=== PATIENT | female | born 1940 | race Caucasian/White ===

== ENCOUNTER → 2017-11-20 08:13 | Outpatient (CLI) | payer MEDICARE, OTHER, SELFPAY ==
--- NOTE | 2017-11-20 08:18 | CT_ITS ---
STUDY: CT SOFT TISSUE NECK WITHOUT CONTRAST REASON FOR EXAM: Female, 77 years old. 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 RADIATION DOSAGE (If Supplied By Facility): CTDIvol = ( 12.88 ) mGy, DLP = ( 423.44 ) mGycm TECHNIQUE: The patient was scanned in a multi-detector CT scanner. High resolution transaxial imaging was performed without the administration of intravenous contrast material. Sagittal and coronal images were reconstructed. Individualized dose optimization techniques were used for this CT. COMPARISON: None. FINDINGS: Normal bilateral parotid glands. Normal bilateral shake sawyer spaces. Normal bilateral parapharyngeal spaces. Normal bilateral carotid spaces. Normal bilateral sublingual and submandibular glands and spaces. Normal visualized nasopharynx. Normal retropharyngeal space. Normal perivertebral space. Normal visualized bilateral faucial tonsils. The visualized tongue, tongue base and oropharynx are normal. The visualized cervical lymph nodes (levels I-) are within normal size limits, and maintain normal morphology. There is no demonstrated solid or cystic mass lesion. Normal epiglottis, bilateral vallecula and hypopharynx. The pre-epiglottic and paraglottic adipose spaces are normal. Soft tissue asymmetry in the left aryepiglottic fold. No significant compromise of the airway. Normal subglottic trachea. Several hypodensities seen in the right lobe of the thyroid. The largest measures 1.2 cm. Normal visualized pulmonary apices. Normal visualized paranasal sinuses. There is multilevel degenerative changes of the cervical spine. CT/Soft Tissue Neck without Contr IMPRESSION: Soft tissue prominence along the left aryepiglottic fold. Small hypodensities seen in the right lobe of the thyroid. Emphysematous changes seen in the visualized portions of the lung. Electronically Signed: Eze Lovett MD at 10:20 EST Tel [phone], Service support ,
== END ==
PROVIDERS: Family Provider Family Medicine; PCP Family Medicine; Visit Provider Radiology Radiation Oncology
DX: C32.0 Malignant neoplasm of glottis (principal)
CPT/HCPCS: 70490

== ENCOUNTER → 2017-12-13 15:48 | Outpatient (CLI) | payer MEDICARE, OTHER, SELFPAY ==
[2017-12-13 17:30] LABS: Absolute Lymphocyte Count 1.27 X10^3/ul (0.83-4.51); Absolute Neutrophil Count 1.9 X10^3/uL (2.0-7.7); Basophil# 0.02 X10^3/uL; Basophil% 0.5 % (0-1); Eosinophil# 0.08 X10^3/uL; Eosinophils% 2.2 % (0-5); Hematocrit 35.8 % (37-47); Lymphocyte # 1.27 X10^3/ul (4.0); Lymphocyte % 34.4 % (19-41); Mean Corp Hgb Conc 33.5 g/gl (32-36); Mean Corpuscular Hgb 30.5 pg (27.0-32.0); Mean Corpuscular Volume 90.9 fL (81-99); Mean Platelet Vol. 9.4 fl (6.2-12.0); Monocyte# 0.42 X10^3/uL; Monocyte% 11.4 % (0-10); Neutrophil % 51.5 % (47-70); Platelet Count 162 K/mm3 (150-450); RBC Distribution Width CV 12.4 % (11.6-14.6); RBC Distribution Width SD 41.4 fl (35.1-43.9); Red Blood Count 3.94 M/mm3 (4.2-5.4); White Blood Count 3.7 K/mm3 (4.4-11.0)
[2017-12-13 17:33] LABS: POSITIVE COUNT NO; POSITIVE DIFFERENTIAL NO; POSITIVE MORPHOLOGY NO
== END ==
PROVIDERS: Visit Provider Radiology Radiation Oncology
DX: C32.0 Malignant neoplasm of glottis (principal)
CPT/HCPCS: 36415; 85025

== ENCOUNTER → 2018-04-09 14:03 | Outpatient (CLI) | payer MEDICARE, OTHER, SELFPAY ==
[2018-04-09 15:00] LABS: BUN 26 mg/dL (7-18); Creatinine, Serum 0.77 mg/dL (0.55-1.02); EST Glomerular Filtration Rate 78 mL/min (>60); Glucose 96 mg/dL (74-106)
[2018-04-09 15:01] LABS: Anion Gap 4 (5-15); BUN/Creat Ratio 33.9 RATIO (10-20); Calcium,Total 8.7 mg/dL (8.5-10.1); Chloride 106 mmol/L (98-107); Cholesterol 214 mg/dL (200); Est Glom Filt Rate - Afr Amer 94 mL/min (>60); High Density Lipoprotein 68 mg/dL; Potassium 4.1 mmol/L (3.5-5.1); Sodium Level 140 mmol/L (136-145); Thyroid Stim Hormone (TSH) 2.41 uIU/mL (0.358-3.74); Triglycerides 83 mg/dL; Very Low Density Lipoprotein 17 mg/dL (5-40)
== END ==
PROVIDERS: Visit Provider Internal Medicine Cardiovascular Disease
DX: I10 Essential (primary) hypertension (principal)
CPT/HCPCS: 36415; 80048; 80061; 84443

== ENCOUNTER → 2018-04-30 11:01 | Outpatient (CLI) | payer MEDICARE, OTHER, SELFPAY ==
--- NOTE | 2018-04-30 11:03 | ECHOD_ITS ---
Version 2 Reason For Study: ARRHYTHMIA Procedure This was a 2D Doppler, Color Flow transthoracic echocardiogram. Exam performed in department. Left Ventricle Normal LV size. The estimated ejection fraction is 25 %. Septal motion consistent with IVCD. Transmitral diastolic flow velocities suggest mild (stage 1) diastolic dysfunction (reversed pattern). There is moderate to severe global hypokinesis of the left ventricle. Right Ventricle Normal RV size. Normal systolic function. Mitral Valve Bileaflet diffuse mitral valve thickening. Mild (1+) eccentric mitral valve insufficiency. Tricuspid Valve Normal tricuspid valve. Mild tricuspid valve insufficiency. Unable to estimate RV systolic pressure/pulmonary artery pressure due to technically difficult study. Aortic Valve Trisinus/trileaflet aortic valve. Pulmonic Valve Normal pulmonic valve. Great Vessels Normal aortic root. The pulmonary artery is normal size. Normal inferior vena cava. Pericardium/Pleural No pericardial effusion. MMode/2D Measurements & Calculations LVIDd: 4.5 cm IVSd: 1.1 cm Ao root diam: 2.9 cm LVIDs: 3.6 cm LVPWd: 1.0 cm RVDd: 3.7 cm FS: 19.2 % LAV(MOD-bp): 34.3 ml LA A4 area: 10.7 cm2 RA A4 area: 10.1 cm2 LAV(MOD-bp) Indexed: 22.1 ml/m2 LAV(MOD-sp2): 43.5 ml LAV(MOD-sp4): 26.2 ml Time Measurements MV dec time: 0.32 sec Doppler Measurements & Calculations MV E max joshua: 48.6 cm/sec Lat Peak E' Joshua: 4.2 cm/sec Med Peak E' Joshua: 2.7 cm/sec MV A max joshua: 80.4 cm/sec E/E' lat: 11.6 E/E' med: 17.9 MV E/A: 0.60 Ao V2 max: 149.7 cm/sec LV V1 max: 107.5 cm/sec Ao max P.0 mmHg LV V1 max P.6 mmHg Interpretation Summary Normal LV size. The estimated ejection fraction is 25 %. Septal motion consistent with IVCD. Transmitral diastolic flow velocities suggest mild (stage 1) diastolic dysfunction (reversed pattern). Mild tricuspid valve insufficiency. Global longitudinal strain of 12 Ordering Physician: Michael Eagle Referring Physician: Michael Ealge Performed By: Celeste Knight, ONELIA, RVT
== END ==
PROVIDERS: Visit Provider Internal Medicine Cardiovascular Disease
DX: I44.7 Left bundle-branch block, unspecified (principal)
CPT/HCPCS: 93306

== ENCOUNTER 2018-06-12 11:11 | Emergency (ER) | payer MEDICARE, OTHER, SELFPAY ==
[2018-06-12 11:12] VITALS: BP 148/91; PULSE 80; RESP 16; TEMP 36.6; O2SAT 98; BMI 21.6
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
[2018-06-12] MEDS: Diphth,Pertuss(Acell),Tet Vac 0.5 ML Vial IM (11:39)
--- NOTE | 2018-06-12 12:18 | ED.DEP ---
ED Disposition - Plan for ED Patient: Disposition: Home or Assisted Living Chief Complaint: Head Injury Instructions: ED Head Injury Closed, ED Laceration Scalp Stitch Or Stap Referrals: Yared Chun MD [STAFF PHYSICIAN] - 10 Day for suture removal Additional Instructions: Keep wound clean. Suture removal in 10 days. Return if severe headache, intractable vomiting. Or not acting herself. At this time she does not meet any criteria for a CAT scan.
== END 2018-06-12 12:31 | disposition home or self-care (01) ==
PROVIDERS: Emergency Provider Emergency Medicine
DX: S01.01XA Laceration without foreign body of scalp, initial encounter (principal); W17.89XA Other fall from one level to another, initial encounter; Y93.9 Activity, unspecified; Y92.9 Unspecified place or not applicable; Y99.9 Unspecified external cause status; Z23 Encounter for immunization; I10 Essential (primary) hypertension; Z79.82 Long term (current) use of aspirin; Z79.899 Other long term (current) drug therapy
CPT/HCPCS: 12001; 90471; 90715; 99284

== ENCOUNTER 2018-12-15 08:56 | Day surgery (SDC) | payer MEDICARE, OTHER, SELFPAY ==
[2018-12-02 14:12] VITALS: BMI 22.3
--- NOTE | 2018-12-02 16:15 | RAD_ITS ---
STUDY: X-RAY CHEST REASON FOR EXAM: Female, 78 years old. Chest pain with cardiomyopathy TECHNIQUE: PA and lateral views of the chest. COMPARISON: None. FINDINGS: There is hyperinflation of the lungs consistent with chronic obstructive lung disease (COPD). Lungs are clear. There is no demonstrated pleural abnormality. There is borderline cardiomegaly. Normal mediastinum and robert. Normal visualized pulmonary arteries. Normal visualized aortic arch and descending thoracic aorta. There are diffuse degenerative changes of the visualized thoracic spine. Normal visualized ribs, clavicles, and shoulders. There is no demonstrated abnormality of the visualized soft tissue structures of the upper abdomen. RAD/Chest PA and Lateral IMPRESSION: COPD. Lungs are clear. Borderline cardiomegaly. Electronically Signed: Dontrell Ch DO at 13:35 EST Tel , Service support ,
[2018-12-02 16:35] LABS: Absolute Lymphocyte Count 1.26 X10^3/ul (0.83-4.51); Absolute Neutrophil Count 1.7 X10^3/uL (2.0-7.7); Basophil# 0.01 X10^3/uL; Basophil% 0.3 % (0-1); Eosinophil# 0.08 X10^3/uL; Eosinophils% 2.3 % (0-5); Hematocrit 38.8 % (37-47); Hemoglobin 12.8 g/dl (12.0-15.0); Lymphocyte # 1.26 X10^3/ul (4.0); Lymphocyte % 36.4 % (19-41); Mean Corpuscular Hgb 30.9 pg (27.0-32.0); Mean Corpuscular Volume 93.7 fL (81-99); Mean Platelet Vol. 9.1 fl (6.2-12.0); Monocyte# 0.39 X10^3/uL; Monocyte% 11.3 % (0-10); Neutrophil # 1.71 X10^3/uL (2.7-7.7); Neutrophil % 49.4 % (47-70); Platelet Count 169 K/mm3 (150-450); RBC Distribution Width SD 40.1 fl (35.1-43.9); Red Blood Count 4.14 M/mm3 (4.2-5.4); White Blood Count 3.5 K/mm3 (4.4-11.0)
[2018-12-02 16:36] LABS: POSITIVE COUNT NO; POSITIVE DIFFERENTIAL NO; POSITIVE MORPHOLOGY NO
[2018-12-02 17:04] LABS: Anion Gap 6 (5-15); BUN 25 mg/dL (7-18); BUN/Creat Ratio 31.1 RATIO (10-20); Calcium,Total 8.9 mg/dL (8.5-10.1); Chloride 106 mmol/L (98-107); EST Glomerular Filtration Rate 74 mL/min (>60); Est Glom Filt Rate - Afr Amer 89 mL/min (>60); Glucose 79 mg/dL (74-106); Potassium 4.3 mmol/L (3.5-5.1); Sodium Level 144 mmol/L (136-145)
[2018-12-05 10:41] VITALS: BMI 22.3
--- NOTE | 2018-12-15 11:14 | CL.D_ITS ---
Patient Name: DOUGLAS WOO Study Date: 12/15/2018 Performing: Michael Eagle MD Ht: 62.99 inches 160 cm : 1940 Wt: 125.66 lbs 57 kg Age: 78 Gender: female BSA: 1.59 PROCEDURE(S) PERFORMED QB79-TOG/COR/LV CLINICAL PROFILE AND INDICATIONS Indications: Cardiomyopathy Heart Failure: None Stress/Imaging Stress/Image Study Performed: No CAD Presentations: No Sxs, no angina. CONCLUSIONS Moderately severe CAD involving the distal left anterior descending artery. Severe hypertension. Mi ld cardiomyopathy RECOMMENDATIONS Medical therapy Stress testing when BP better controlled. DESCRIPTION OF PROCEDURE The patient arrived to the procedure lab. The risks and benefits of the procedure as well as a full d escription of our services here and current unavailability of surgical backup were fully explained to the patient and/or their significant other prior to the catheterization. The Timeout was completed, verifying the correct patient and procedure. The patient's procedural site was prepped and draped in the usual fashion. Local anesthetic was given subcutaneously to right groin region with Lidocaine 2%. Using a modified Seldinger technique, arterial access was obtained via the right femoral artery, a 5 Fr sheath was inserted. Left Coronary Artery selective angiography was performed in multiple views u sing a 5 Fr. JL4 catheter. Right Coronary Artery selective angiography was then performed in multiple views using a 5 Fr. 3DRC (Moe) catheter. Left Ventriculography was performed in HERNADEZ projection using a 5 Fr. Pigtail catheter. LV to AO pullback pressures were then recorded.Contrast was injected through the sheath and the Right Iliac and Femoral artery were assessed for possible regina sure device.The arterial sheath was pulled and a Mynx closure device was deployed for hemostasis CORONARY ANGIOGRAPHY DOMINANCE: Right Dominant LEFT HEART ASSESSMENT Left Ventricular Ejection Fraction: by LV Gram 40 % Anterior Hypokinesis - Mild Depressed Left Ventricular systolic function LEFT MAIN: Angiographically normal LEFT ANTERIOR DECENDING ARTERY: PROX LAD: Mild luminal irregularities MID LAD: Mild luminal irregularities DISTAL LAD: 60-70 in small vessel % Stenosis CIRCUMFLEX ARTERY: Angiographically normal RIGHT CORONARY ARTERY: Angiographically normal COMPLICATIONS No Complications PROCEDURE MEDICATIONS Versed 1 mg IV Oxygen: 2 L/min via nasal cannula Plavix 300 mg PO 12/15/2018 09:22:27 SUMMARY OF HEMODYNAMIC DATA Time AIR REST ECG 09:28:51 AO 170/67 (102) SA 10:39:13 LV 177/4, 13 10:45:50 LV 182/5, 11 10:45:57 LV 181/2, 17 10:47:00 LVp 183/0, 17 10:47:03 AOp 183/70 (110) 10:47:09 Signed By Michael Eagle MD On 12/15/2018 11:13:36 Michael Eagle MD
== END 2018-12-15 13:40 | disposition home or self-care (01) ==
LOC: CLSP 08:58
PROVIDERS: Referring Provider Internal Medicine Cardiovascular Disease; Visit Provider Internal Medicine Cardiovascular Disease
DX: I25.10 Atherosclerotic heart disease of native coronary artery without angina pectoris (principal); I42.9 Cardiomyopathy, unspecified; I10 Essential (primary) hypertension; Z79.82 Long term (current) use of aspirin; Z79.899 Other long term (current) drug therapy
CPT/HCPCS: 36415; 71046; 80048; 85025; 93458; 99152; 99153; C1760; J7040; C1769; Q9967

== ENCOUNTER → 2019-01-27 15:19 | Outpatient (CLI) | payer MEDICARE, OTHER, SELFPAY ==
[2018-12-05 10:41] VITALS: BMI 22.3
--- NOTE | 2019-01-27 12:41 | MASS_PTH ---
PATIENT: DOUGLAS WOO LOC: [facility] U#:[id number] AGE/SX: 85/F ROOM: RE01/27/[address]: Dr. Porter Gonzalez MD : 1940 BED: DIS: SPEC #: [id number] RECD: 01/27/19 15:12 STATUS: ANI [facility] #: [id number] ANN: 01/27/19 12:[address]: Porter Gonzalez DEPT: SURGICAL PATHOLOGY RECD BY: Sudha Medina ENTERED: 01/28/19 11:05 SP TYPE: Mass OTHR DR: Rin Primary Care Phys [facility] Tissues: Ear, NOS Procedures: Surgery Specimen Level IV HEADER OPERATION: Excision right ear lesion PRE-OP DIAGNOSIS: Lesion right ear TISSUE SUBMITTED: Mass right pinna MICROSCOPIC DIAGNOSIS Mass right pinna, excisional biopsy: Seborrheic keratosis. Negative for malignancy. SJ:ruby 01/29/19 COMMENT Case has been reviewed in consultation with Dr. Akins who concurs with the above diagnosis. IDC:AM MICROSCOPIC DESCRIPTION Slides are reviewed. GROSS DESCRIPTION Received is one container labeled with the patient's name and not further designated. The specimen consists of a polypoid piece of lundberg-white skin measuring 1.5 x 1 x 0.9 cm. Also present in the container are two smaller pieces of lundberg soft tissue measuring in aggregate 0.4 x 0.2 x 0.1 cm. Largest piece is inked and bisected. The entire specimen is submitted in one cassette. / SJ:rg 01/28/19 TC:1 CPT: 57980
== END ==
PROVIDERS: Referring Provider Otolaryngology Otolaryngology/Facial Plastic Surgery; Visit Provider Otolaryngology Otolaryngology/Facial Plastic Surgery
DX: L82.1 Other seborrheic keratosis (principal)
CPT/HCPCS: 88305

== ENCOUNTER → 2019-04-14 11:56 | Outpatient (CLI) | payer MEDICARE, OTHER, SELFPAY ==
[2018-12-05 10:41] VITALS: BMI 22.3
[2019-04-03 11:27] VITALS: BMI 21.4
--- NOTE | 2019-04-14 11:59 | BI_ITS ---
MAMMOGRAPHY - BILATERAL SCREENING 3-D TOMOSYNTHESIS REASON FOR EXAM: Female, 78 years old. Bilateral Screening 3-D tomosynthesis PERTINENT HISTORY: History of inverted nipples all of her life. TECHNIQUE: 2-D mammograms and 3-D Tomosynthesis of the breast (s) were performed. CAD was performed. COMPARISON: September 05, 2016, August 01, 2015 FINDINGS: The breast composition is heterogeneously dense that can obscure small breast masses. Scattered benign calcifications are seen. No dense spiculated masses or suspicious microcalcifications are identified. No architectural distortion is identified. There is no skin thickening or retraction. There has been no significant change since the prior study. BI/SCREEN MAMM (CAD) W/TOPHER BILAT IMPRESSION: No mammographic signs of malignancy. Routine yearly mammograms recommended. ASSESSMENT CATEGORY: BIRADS Category 2: Benign. A letter regarding these results will be sent to the patient by the facility within 30 days. FOLLOW UP RECOMMENDATION: Yearly follow up mammogram recommended. (A) Approximately 10% of breast cancers are not detected by mammography. A normal mammogram should not delay biopsy of a clinically suspicious abnormality. Electronically Signed: Evan Peace MD at 17:37 EDT , Service support ,
--- NOTE | 2019-04-14 12:15 | BD_ITS ---
STUDY: DUAL ENERGY X-RAY ABSORPTIOMETRY / DXA REASON FOR EXAM: Female, 78 years old. The patient is postmenopausal. Loss of height. TECHNIQUE: Bone Mineral Density (BMD) measurements of lumbar spine and bilateral hips were obtained. COMPARISON: Comparison is made with prior examination dated January 31, 2011. FINDINGS: Lumbar Spine (L1-L4): g/cm2 (1.286) / T-score (0.7) / Z-score (2.5) Findings are suggestive of normal bone density with a low fracture risk. Increased thoracic kyphosis. Left Femur Total: g/cm2 (1.072) / T-score (0.5) / Z-score (2.3) Left Femoral Neck: g/cm2 (1.020) / T-score (-0.1) / Z-score (1.9) Right Femur Total: g/cm2 (1.018) / T-score (0.1) / Z-score (1.9) Right Femoral Neck: g/cm2 (0.992) / T-score (-0.3) / Z-score (1.7) The T-Scores on the most recent prior examination were: Lumbar Spine (L1-L4): There has been worsening of bone density since the previous examination. Left Femur Total: which represents a worsening of 4.9%. Right Femur Total: which represents an improvement of 1.8%. BD/Dexa Bone Density Study IMPRESSION: The patient is considered normal as outlined below according to World Ever Organization (WHO) criteria with a low fracture risk. There has been worsening of bone density since the previous examination. Reference Information: The T-score is the number of standard deviations above or below the standard which is normal for young adults at their peak bone mineral density. The World Health Organization (WHO) interprets the T-scores as follows: Above -1 Normal bone density Between -1 and -2.5 Osteopenia Equal to / or below -2.5 Osteoporosis As a practical clinical guideline, osteopenia may be graded as follows: Mild -1 through -1.5 Moderate -1.6 through -2.0 Severe -2.1 through -2.4 The Z-score is the number of standard deviations above or below age-matched controls. A Z-score of less than -1.5 would be considered abnormal. References: 1. NIH Osteoporosis and Related Bone Diseases http://www.osteo.org 2. International Society for Clinical Densitometry http://www.iscd.org 3. National Osteoporosis Foundation http://www.nof.org Electronically Signed: Eze Lovett, at 10:27 EDT , Service support ,
== END ==
PROVIDERS: Family Provider Family Medicine; PCP Family Medicine; Referring Provider Obstetrics & Gynecology Gynecology; Visit Provider Obstetrics & Gynecology Gynecology
DX: Z12.31 Encounter for screening mammogram for malignant neoplasm of breast (principal); Z13.820 Encounter for screening for osteoporosis; Z78.0 Asymptomatic menopausal state
CPT/HCPCS: 77063; 77067; 77080

== ENCOUNTER → 2019-06-10 15:07 | Outpatient (CLI) | payer MEDICARE, OTHER, SELFPAY ==
[2019-06-03 13:52] VITALS: BMI 23.0
[2019-06-10 16:11] LABS: Anion Gap 6 (5-15); BUN 21 mg/dL (7-18); BUN/Creat Ratio 23.5 RATIO (10-20); Calcium,Total 8.9 mg/dL (8.5-10.1); Chloride 104 mmol/L (98-107); Creatinine, Serum 0.89 mg/dL (0.55-1.02); EST Glomerular Filtration Rate 65 mL/min (>60); Est Glom Filt Rate - Afr Amer 79 mL/min (>60); Glucose 132 mg/dL (74-106); Potassium 4.1 mmol/L (3.5-5.1); Sodium Level 142 mmol/L (136-145)
== END ==
PROVIDERS: Family Provider Family Medicine; PCP Family Medicine; Referring Provider Physician Assistant Medical; Visit Provider Physician Assistant Medical
DX: I10 Essential (primary) hypertension (principal)
CPT/HCPCS: 36415; 80048

== ENCOUNTER → 2019-11-02 06:03 | Outpatient (CLI) | payer MEDICARE, OTHER, SELFPAY ==
[2019-10-12 10:54] VITALS: BMI 23.4
--- NOTE | 2019-11-02 17:47 | STRESSREP ---
Stress Test Report Pharmacologic myocardial perfusion stress test. 79-year-old lady with a history of mild coronary disease involving the distal LAD. Stress protocol: Resting EKG demonstrates normal sinus rhythm with a rate of 63 bpm left bundle branch block is noted. 0.4 mg of regadenoson was infused per usual protocol followed Intravenous saline flush injection continuous business process expert was performed. The maximum heart rate attained was 92 bpm which was 64% of maximum predicted heart rate the maximum workload was 1 metabolic equivalent. At rest there were no ST or T wave changes noted suggest abnormal flow reserve at peak infusion nonspecific ST-T wave changes were noted. No clinical angina was noted. Myocardial perfusion stress test. 11.1 mCi of technetium 99m sestamibi was injected at rest. 0.4 mg of regadenoson was infused per usual protocol peak infusion 33.6 mCi of technetium 99m sestamibi was injected stress images were obtained stress and rest images were reconstructed and compared in the short axis vertical long horizontal long axis. Gated images were also obtained Perfusion SPECT analysis: Review of the stress images demonstrate normal perfusion noted in the lateral wall anterior wall and inferior wall. The mid septum demonstrates reduced perfusion noted on the stress and resting images suggestive of either previous septal infarct or left bundle branch block perfusion abnormality. The latter is more likely. No obvious ischemia is noted. Gated SPECT analysis: The gated ejection fraction is noted to be 44%. Conclusion: Pharmacologic myocardial perfusion stress test with no obvious ischemia noted. Left bundle branch block perfusion abnormality noted in the septum. Mildly reduced ejection fraction.
== END ==
PROVIDERS: Family Provider Family Medicine; PCP Family Medicine; Referring Provider Physician Assistant Medical; Visit Provider Physician Assistant Medical
DX: R07.9 Chest pain, unspecified (principal); I25.10 Atherosclerotic heart disease of native coronary artery without angina pectoris
CPT/HCPCS: 78452; 93017; A9500; A4216; J2785

== ENCOUNTER → 2020-05-20 11:53 | Outpatient (CLI) | payer MEDICARE, OTHER, SELFPAY ==
[2020-01-06 15:09] VITALS: BMI 23.0
--- NOTE | 2020-05-20 11:56 | BI_ITS ---
MAMMOGRAPHY - BILATERAL SCREENING REASON FOR EXAM: Female, 79 years old. Routine annual screening examination. PERTINENT HISTORY: Non-contributory. History of chronic retraction of both nipples. TECHNIQUE: Digital bilateral breast topher (3D mammographic acquisition) in the CC and MLO projections. 2-D mediolateral oblique (MLO) and craniocaudad (CC) views of both breasts were obtained. CAD: Full Field Digital Mammography with Computer Added Detection was performed. COMPARISON: Comparison is made with prior study dated 04/14/2019 and 09/05/2016. FINDINGS: Breast Composition: The breasts are extremely dense, which lowers the sensitivity of mammography. There are no dominant masses or suspicious calcifications. Stable bilateral secretory calcifications. No other significant abnormalities are identified. There has been no significant change since the prior study. BI/SCREEN MAMM (CAD) W/TOPHER BILAT IMPRESSION: Stable bilateral screening mammogram. Yearly follow-up mammogram recommended. (A) ASSESSMENT CATEGORY: BIRADS Category 2: Benign. A letter regarding these results will be sent to the patient by the facility within 30 days. Approximately 10% of breast cancers are not detected by mammography. A normal mammogram should not delay biopsy of a clinically suspicious abnormality. [id number] Electronically Signed: Eze Lovett, at 12:41 EDT , Service support ,
== END ==
PROVIDERS: PCP Family Medicine; Referring Provider Obstetrics & Gynecology Gynecology; Visit Provider Obstetrics & Gynecology Gynecology
DX: Z12.31 Encounter for screening mammogram for malignant neoplasm of breast (principal)
CPT/HCPCS: 77063; 77067

== ENCOUNTER → 2020-11-02 15:50 | Outpatient (CLI) | payer MEDICARE, OTHER, SELFPAY ==
[2020-08-18 07:36] VITALS: BMI 21.7
[2020-11-02 18:15] LABS: Absolute Lymphocyte Count 1.12 X10^3/uL (0.83-4.51); Absolute Neutrophil Count 2.1 X10^3/uL (2.0-7.7); Basophil# 0.01 X10^3/uL; Basophil% 0.3 % (0-1); Eosinophil# 0.07 X10^3/uL; Eosinophils% 1.9 % (0-5); Hemoglobin 11.9 g/dL (12.0-15.0); Lymphocyte # 1.12 X10^3/ul (4.0); Lymphocyte % 29.7 % (19-41); Mean Corp Hgb Conc 33.1 g/dL (32-36); Mean Corpuscular Hgb 30.7 pg (27.0-32.0); Mean Corpuscular Volume 92.8 fL (81-99); Mean Platelet Vol. 9.3 fl (6.2-12.0); Monocyte# 0.42 X10^3/uL; Monocyte% 11.1 % (0-10); NRBC Flagged by Analyzer 0 % (0-5); Neutrophil # 2.14 X10^3/uL (2.7-7.7); Neutrophil % 56.7 % (47-70); Platelet Count 189 K/mm3 (150-450); RBC Distribution Width CV 12.5 % (11.6-14.6); RBC Distribution Width SD 42.5 fl (35.1-43.9); Red Blood Count 3.88 M/mm3 (4.2-5.4); White Blood Count 3.8 K/mm3 (4.4-11.0)
[2020-11-02 18:34] LABS: ALB/GLOB Ratio 1.1 RATIO (0.9-2.4); AST(SGOT) 22 U/L (15-37); Alanine Aminotransfer ALT/SGPT 30 U/L (13-56); Albumin, Serum 3.6 g/dL (3.2-5.0); Alkaline Phosphatase 66 U/L (45-117); Anion Gap 5 (5-15); BUN 23 mg/dL (7-18); BUN/Creat Ratio 23.4 RATIO (10-20); Calcium,Total 8.6 mg/dL (8.5-10.1); Chloride 103 mmol/L (98-107); Creatinine, Serum 0.98 mg/dL (0.55-1.02); EST Glomerular Filtration Rate 58 mL/min (>60); Est Glom Filt Rate - Afr Amer 70 mL/min (>60); Globulin 3.3 g/dL (2.2-4.2); Glucose 78 mg/dL (74-106); Potassium 3.6 mmol/L (3.5-5.1); Protein, Total 6.9 g/dL (6.4-8.2); Sodium Level 141 mmol/L (136-145); Thyroid Stim Hormone (TSH) 5.92 uIU/mL (0.358-3.74)
== END ==
PROVIDERS: PCP Family Medicine; Referring Provider Nurse Practitioner Adult Health; Visit Provider Nurse Practitioner Adult Health
DX: R53.83 Other fatigue (principal)
CPT/HCPCS: 36415; 80053; 84443; 85025

== ENCOUNTER 2020-12-19 07:29 | Outpatient (RCR) | payer MEDICARE, OTHER, SELFPAY ==
[2020-08-18 07:36] VITALS: BMI 21.7
== END 2020-12-19 23:59 ==
LOC: IMMUN 07:29
PROVIDERS: PCP Family Medicine; Visit Provider Family Medicine
DX: Z23 Encounter for immunization (principal)
CPT/HCPCS: 0011A; 0012A

== ENCOUNTER → 2020-12-19 10:20 | Outpatient (CLI) | payer MEDICARE, OTHER, SELFPAY ==
[2020-08-18 07:36] VITALS: BMI 21.7
[2020-12-19 13:09] LABS: Free T3 2.2 pg/mL (2.18-3.98); Thyroid Stim Hormone (TSH) 2.47 uIU/mL (0.358-3.74)
== END ==
PROVIDERS: PCP Family Medicine; Referring Provider Nurse Practitioner Adult Health; Visit Provider Nurse Practitioner Adult Health
DX: E03.9 Hypothyroidism, unspecified (principal); Z23 Encounter for immunization
CPT/HCPCS: 0011A; 36415; 84439; 84443; 84481

== ENCOUNTER → 2021-03-23 14:21 | Outpatient (CLI) | payer MEDICARE, OTHER, SELFPAY ==
[2020-08-18 07:36] VITALS: BMI 21.7
[2021-03-23 18:10] LABS: Anion Gap 6 (5-15); BUN 24 mg/dL (7-18); BUN/Creat Ratio 27.7 RATIO (10-20); Calcium,Total 8.7 mg/dL (8.5-10.1); Chloride 105 mmol/L (98-107); Creatinine, Serum 0.86 mg/dL (0.55-1.02); EST Glomerular Filtration Rate 67 mL/min (>60); Est Glom Filt Rate - Afr Amer 81 mL/min (>60); Glucose 76 mg/dL (74-106); Potassium 3.2 mmol/L (3.5-5.1); Sodium Level 142 mmol/L (136-145); Thyroid Stim Hormone (TSH) 1.52 uIU/mL (0.358-3.74)
== END ==
PROVIDERS: PCP Family Medicine; Referring Provider Family Medicine; Visit Provider Family Medicine
DX: I10 Essential (primary) hypertension (principal); E03.9 Hypothyroidism, unspecified
CPT/HCPCS: 36415; 80048; 84443

== ENCOUNTER → 2021-06-20 08:01 | Outpatient (CLI) | payer MEDICARE, OTHER, SELFPAY ==
[2021-06-20 10:06] LABS: Absolute Lymphocyte Count 1.12 X10^3/uL (0.83-4.51); Absolute Neutrophil Count 1.9 X10^3/uL (2.0-7.7); Basophil# 0.02 X10^3/uL; Basophil% 0.6 % (0-1); Eosinophil# 0.12 X10^3/uL; Eosinophils% 3.4 % (0-5); Hematocrit 38.4 % (37-47); Hemoglobin 12.3 g/dL (12.0-15.0); Lymphocyte # 1.12 X10^3/ul (0.83-4.51); Lymphocyte % 31.4 % (19-41); Mean Corpuscular Hgb 29.9 pg (27.0-32.0); Mean Corpuscular Volume 93.4 fL (81-99); Mean Platelet Vol. 9.5 fl (6.2-12.0); Monocyte# 0.36 X10^3/uL; Monocyte% 10.1 % (0-10); NRBC Flagged by Analyzer 0 % (0-5); Neutrophil # 1.94 X10^3/uL (2.7-7.7); Neutrophil % 54.2 % (47-70); Platelet Count 168 K/mm3 (150-450); RBC Distribution Width CV 12.8 % (11.6-14.6); RBC Distribution Width SD 43.8 fl (35.1-43.9); Red Blood Count 4.11 M/mm3 (4.2-5.4); White Blood Count 3.6 K/mm3 (4.4-11.0)
[2021-06-20 10:53] LABS: ALB/GLOB Ratio 1.1 RATIO (0.9-2.4); AST(SGOT) 20 U/L (15-37); Alanine Aminotransfer ALT/SGPT 22 U/L (13-56); Albumin, Serum 3.8 g/dL (3.2-5.0); Alkaline Phosphatase 69 U/L (45-117); Anion Gap 4 (5-15); BUN 22 mg/dL (7-18); BUN/Creat Ratio 24.6 RATIO (10-20); Calcium,Total 8.8 mg/dL (8.5-10.1); Chloride 106 mmol/L (98-107); Cholesterol 227 mg/dL (200); Creatinine, Serum 0.89 mg/dL (0.55-1.02); EST Glomerular Filtration Rate 65 mL/min (>60); Est Glom Filt Rate - Afr Amer 78 mL/min (>60); Globulin 3.6 g/dL (2.2-4.2); Glucose 84 mg/dL (74-106); High Density Lipoprotein 58 mg/dL; Potassium 3.9 mmol/L (3.5-5.1); Protein, Total 7.4 g/dL (6.4-8.2); Sodium Level 143 mmol/L (136-145); Thyroid Stim Hormone (TSH) 8.21 uIU/mL (0.358-3.74); Triglycerides 87 mg/dL; Very Low Density Lipoprotein 17 mg/dL (5-40)
== END ==
PROVIDERS: PCP Family Medicine; Referring Provider Family Medicine; Visit Provider Family Medicine
DX: I10 Essential (primary) hypertension (principal); E03.9 Hypothyroidism, unspecified
CPT/HCPCS: 36415; 80053; 80061; 84443; 85025

== ENCOUNTER → 2021-09-25 09:24 | Outpatient (CLI) | payer MEDICARE, OTHER, SELFPAY ==
[2021-09-25 12:48] LABS: Thyroid Stim Hormone (TSH) 4.37 uIU/mL (0.358-3.74)
== END ==
PROVIDERS: PCP Family Medicine; Referring Provider Family Medicine; Visit Provider Family Medicine
DX: E03.9 Hypothyroidism, unspecified (principal)
CPT/HCPCS: 36415; 84443

== ENCOUNTER 2021-12-25 14:59 | Outpatient (CLI) | payer MEDICARE, OTHER, SELFPAY ==
[2021-12-25 18:45] LABS: Anion Gap 6 (5-15); BUN 27 mg/dL (7-18); BUN/Creat Ratio 32.1 RATIO (10-20); Calcium,Total 9.6 mg/dL (8.5-10.1); Chloride 107 mmol/L (98-107); Creatinine, Serum 0.84 mg/dL (0.55-1.02); EST Glomerular Filtration Rate 69 mL/min (>60); Est Glom Filt Rate - Afr Amer 84 mL/min (>60); Glucose 95 mg/dL (74-106); Potassium 3.8 mmol/L (3.5-5.1); Sodium Level 142 mmol/L (136-145); Thyroid Stim Hormone (TSH) 3.78 uIU/mL (0.358-3.74)
== END 2021-12-25 23:59 | disposition home or self-care (01) ==
LOC: MFPLAB 15:01
PROVIDERS: PCP Family Medicine; Visit Provider Nurse Practitioner Family
DX: I10 Essential (primary) hypertension (principal); E03.9 Hypothyroidism, unspecified
CPT/HCPCS: 36415; 80048; 82043; 82570; 84443

== ENCOUNTER → 2022-03-21 | Outpatient (CLI) | payer MEDICARE, OTHER, SELFPAY ==
[2022-03-21 17:52] LABS: Anion Gap 6 (5-15); BUN 28 mg/dL (7-18); BUN/Creat Ratio 34.9 RATIO (10-20); Calcium,Total 8.9 mg/dL (8.5-10.1); Chloride 105 mmol/L (98-107); EST Glomerular Filtration Rate 73 mL/min (>60); Est Glom Filt Rate - Afr Amer 88 mL/min (>60); Glucose 94 mg/dL (74-106); Potassium 4.1 mmol/L (3.5-5.1); Sodium Level 143 mmol/L (136-145); Thyroid Stim Hormone (TSH) 4.46 uIU/mL (0.358-3.74)
[2022-03-21 18:14] LABS: Microalbumin,Random Urine 18.8 mg/L (NO RANGE EST.); Microalbumin:Creatinine Ratio 13.5 mg/g CRE (<30 mg/g CRE)
== END | disposition home or self-care (01) ==
LOC: MFPLAB 15:07
PROVIDERS: Nurse Practitioner Family; PCP Family Medicine; Visit Provider Family Medicine
DX: I10 Essential (primary) hypertension (principal); E03.9 Hypothyroidism, unspecified
CPT/HCPCS: 36415; 80048; 82043; 82570; 84443

== ENCOUNTER → 2022-08-31 | Outpatient (CLI) | payer MEDICARE, OTHER, SELFPAY ==
--- NOTE | 2022-08-31 13:09 | ECHOD_ITS ---
Reason For Study: HTN Procedure This was a 2D Doppler, Color Flow transthoracic echocardiogram. Exam performed in department. Left Ventricle Normal LV size. The estimated ejection fraction is 40 %. Septal motion consistent with IVCD. There is mild to moderate global hypokinesis of the left ventricle. Right Ventricle Normal RV size. Normal systolic function. Atria Normal left atrium. Normal right atrium. Mitral Valve Mild diffuse mitral valve thickening. Tricuspid Valve Normal tricuspid valve. Mild tricuspid valve insufficiency. Pulmonary artery systolic pressure is 20 mmHg. Aortic Valve Trisinus/trileaflet aortic valve. Mild focal aortic valve calcification. Peak aortic valve gradient 18 mmHg. Mean aortic valve gradient 10 mmHg. Pulmonic Valve Normal pulmonic valve. Great Vessels Normal aortic root. The pulmonary artery is normal size. Normal inferior vena cava. Pericardium/Pleural No pericardial effusion. MMode/2D Measurements & Calculations LVIDd: 4.3 cm IVSd: 1.4 cm LVOT diam: 2.0 cm LVIDs: 2.7 cm LVPWd: 1.1 cm LVOT area: 3.3 cm2 RVDd: 3.9 cm FS: 36.9 % Ao root diam: 3.3 cm LAV(MOD-bp): 30.3 ml LVAd ap4: 28.0 cm2 LAV(MOD-bp) Indexed: 19.4 ml/m2 LVLd ap4: 8.1 cm LAV(MOD-sp2): 44.2 ml EDV(MOD-sp4): 84.1 ml LAV(MOD-sp4): 20.3 ml EDV(sp4-el): 82.8 ml LVAs ap4: 21.2 cm2 LVLs ap4: 7.2 cm ESV(MOD-sp4): 53.1 ml ESV(sp4-el): 52.8 ml EF(MOD-sp4): 36.9 % EF(sp4-el): 36.2 % SV(MOD-sp4): 31.0 ml SV(sp4-el): 30.0 ml LA A4 area: 9.4 cm2 LA dimension(2D): 3.2 cm RA A4 area: 10.1 cm2 Time Measurements MV dec time: 0.23 sec Doppler Measurements & Calculations MV E max joshua: 49.5 cm/sec Lat Peak E' Joshua: 6.8 cm/sec Med Peak E' Joshua: 2.8 cm/sec MV A max joshua: 99.7 cm/sec E/E' lat: 7.3 E/E' med: 17.5 MV E/A: 0.50 MV V2 max: 99.1 cm/sec Ao V2 max: 215.2 cm/sec MV max P.9 mmHg MV dec slope: 283.8 cm/sec2 Ao max P.7 mmHg MV V2 mean: 61.4 cm/sec Ao V2 mean: 150.0 cm/sec MV mean P.7 mmHg Ao mean P.3 mmHg MV V2 VTI: 28.4 cm Ao V2 VTI: 41.0 cm MVA(VTI): 2.3 cm2 DESIREE(I,D): 1.6 cm2 DESIREE(V,D): 1.5 cm2 LV V1 max: 96.4 cm/sec SV(LVOT): 64.6 ml TR max joshua: 204.6 cm/sec LV V1 max P.7 mmHg TR max P.7 mmHg LV V1 mean P.4 mmHg LV V1 mean: 72.7 cm/sec LV V1 VTI: 19.7 cm ECHO/Echo Complete Interpretation Summary Normal LV size. The estimated ejection fraction is 40 %. Septal motion consistent with IVCD. There is mild to moderate global hypokinesis of the left ventricle. Mild focal aortic valve calcification. Mean aortic valve gradient 10 mmHg. Compared to previous study, the left ventricular systolic function has improved .. Ordering Physician: Michael Eagle Referring Physician: Michael Eagle Performed By: Geraldine Campbell RCS
== END | disposition home or self-care (01) ==
LOC: CVS 13:08
PROVIDERS: PCP Family Medicine; Referring Provider Internal Medicine Cardiovascular Disease; Visit Provider Internal Medicine Cardiovascular Disease
DX: I44.7 Left bundle-branch block, unspecified (principal); I10 Essential (primary) hypertension
CPT/HCPCS: 93306

== ENCOUNTER 2022-10-24 08:14 | Emergency (ER) | payer MEDICARE, OTHER, SELFPAY ==
[2022-10-24 08:15] VITALS: BP 171/81; PULSE 68; RESP 18; TEMP 36.8; O2SAT 99; BMI 21.0
--- NOTE | 2022-10-24 08:53 | CT_ITS ---
STUDY: CT ABDOMEN AND PELVIS WITH CONTRAST REASON FOR EXAM: Female, 82 years old. llq pain RADIATION DOSAGE (If Supplied By Facility): CTDIvol = ( 15.42 ) mGy, DLP = ( 371.42 ) mGycm TECHNIQUE: Transaxial images were obtained from the dome of the diaphragm to the symphysis pubis without oral contrast. IV 100mL Isovue-370 was administered. Sagittal and coronal images were reconstructed. Individualized dose optimization techniques were used for this CT. COMPARISON: CT of abdomen and pelvis dated APRIL 04, 2016 FINDINGS: The visualized lung bases are unremarkable. The visualized portions of the heart are within normal limits. Normal liver. Normal gallbladder and extrahepatic biliary system. Normal spleen. Normal pancreas. Normal bilateral adrenal glands. There is mild cortical atrophy of the right kidney, consistent with chronic medical renal disease. There is mild cortical atrophy of the left kidney, consistent with chronic medical renal disease. Redemonstration of several cysts of the right kidney which do not require any additional evaluation. No hydronephrosis is present. There is a small hiatal hernia. Normal small intestine. Normal colon. The appendix is visualized and appears normal. No free air or free fluid or bowel dilatation or evidence of obstruction is present. No diverticula or acute inflammation is seen on this study. There is moderate gaseous distention of the rectosigmoid colon There is diffuse atherosclerotic calcification of the abdominal aorta, without a demonstrated aneurysm. Normal inferior vena cava. Normal retroperitoneum. Normal urinary bladder. There is absence of the uterus consistent with a prior hysterectomy. Normal abdominal wall. There are diffuse degenerative changes of the visualized lumbar spine. CT/Abdomen/Pelvis W IV Cont ONLY IMPRESSION: 1. No free air or free fluid or bowel dilatation or evidence of obstruction is present. No diverticula or acute inflammation is seen on this study. There is moderate gaseous distention of the rectosigmoid colon Electronically Signed: Jose Batista MD at 10:37 EST Reading Location ID and State: [id number] / [place] , Service support ,
--- NOTE | 2022-10-24 08:54 | EDS_ITS ---
HPI HPI - GI History of Present Illness Chief Complaint: Abd Pain Informant: patient Abdominal Pain/Flank Pain Onset: Today Context: Gradual Onset Timing: Continuous Quality: Aching Location: Diffuse Current Severity: Moderate Maximum Severity: Moderate Worsened by: Nothing Relieved by: Nothing Nausea/Vomiting/Emesis GI Symptom: Negative for Nausea or Vomiting Diarrhea/Melena/Hematochezia GI Symptom: Negative for Diarrhea, Melena or Hematochezia Associated Symptoms Associated Symptoms: Negative for Dysuria, Frequency, Hematuria or Urgency Narrative Narrative: Patient presenting with abdominal pain for the last several hours, across her midsection. No radiation into her back, chest, groin, or elsewhere. She denies any nausea, vomiting, diarrhea, urinary symptoms, or having had this before. She did denies having had any surgery in her abdomen in the past that she can recall. [facility] Medical History (Updated 10/24/22 @ 12:[address] 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 Essential (primary) hypertension Left bundle branch block Non-ischemic cardiomyopathy Squamous cell carcinoma in situ Home Medications aspirin 81 mg tablet,delayed release (Adult Aspirin Regimen) 81 mg PO QDAY 04/09/18 [History Last Taken 12/15/18] thyroid supplement PO 04/09/18 [History Last Taken Unknown] pyridoxine (vitamin B6) 50 mg tablet 50 mg PO DAILY 08/18/20 [History Last Taken Unknown] turmeric 400 mg capsule mg PO 08/18/20 [History Last Taken Unknown] amlodipine 10 mg tablet 10 mg PO DAILY #90 tabs 08/21/22 [Rx Last Taken Unknown] atorvastatin 20 mg tablet (Lipitor) 20 mg PO DAILY #90 tabs 08/21/22 [Rx Last Taken Unknown] hydrochlorothiazide 25 mg tablet 25 mg PO DAILY #90 tabs 08/21/22 [Rx Last Taken Unknown] losartan 100 mg tablet 100 mg PO DAILY #90 tabs 08/21/22 [Rx Last Taken Unknown] Allergy/AdvReac Type Severity Reaction Status Date / Time carvedilol Allergy hives Verified 10/24/22 08:15 Penicillins AdvReac Other Verified 10/24/22 08:15 Family History Mother Heart disease Father CAD (coronary artery disease) CABG Myocardial infarction Surgical History H/O total hysterectomy History of left heart catheterization (12/15/18) History of vocal cord polypectomy Social History Smoking Status: Never smoker ROS ROS ED Constitutional Constitutional ED: Denies chills or fever(s) Eyes Eyes: Denies change in vision or diplopia ENT ENT ED: Denies rhinorrhea or sore throat Cardiovascular Cardiovascular: Denies chest pain or palpitations Respiratory/Chest Respiratory/Chest: Denies cough or dyspnea Gastrointestinal Gastrointestinal: Reports abdominal pain; Denies diarrhea, nausea or vomiting Genitourinary Genitourinary ED: Denies dysuria or hematuria Musculoskeletal Musculoskeletal: Denies back pain or neck pain Integumentary Denies abscess or rash Neurologic Neurologic: Denies headache(s), paresthesias or weakness Psychiatric Psychiatric: Denies anxiety or suicidal thoughts EXAM Physical Exam Const Vital Signs: 10/24/22 08:15 10/24/22 11:05 Temperature 98.3 F Temperature Source Temporal Pulse Rate 68 87 Respiratory Rate 18 18 Blood Pressure 171/81 H 145/68 H Blood Pressure Mean 111 93 Pulse Ox 99 97 Oxygen Delivery Method Room Air Room Air Positive well nourished and well developed General Appearance ED: well developed and NAD HEENT Reports moist mucous membranes normocephalic and atraumatic Eyes PERRL and EOMs intact bilaterally Neck full ROM and supple Resp normal respiratory effort and clear to auscultation bilaterally Cardio regular rate, regular rhythm and no murmurs GI non-distended GI Narrative: Tender in the left lower quadrant. No other areas of tenderness. No palpable mass or pulsatile mass. No guarding or rebound tenderness. Nondistended. Auscultation: normoactive bowel sounds Palpation: soft Back/Spine no CVA tenderness General Back: other FROM Extremity normal to inspection General Extremety ED: Negative for edema, pulses abnormal or tenderness General Extremity: Negative for edema or pulses abnormal Neuro oriented x3, CN's II-XII intact bilaterally and no sensory deficits noted Sensorium / Orientation: awake and alert Motor Exam: strength 5/5 throughout Skin no rashes or lesions noted and no wounds MDM MDM MDM Narrative Medical decision making narrative: Work-up includes labs, urinalysis, CT. My interpretation of the CT agrees with that of the radiologist. It is basically negative for nothing acute. There is no sign of diverticulitis which was high on the differential given her age and the location of her pain/tenderness. Radiology noted gaseous distention of the rectosigmoid colon. This is in the right area to be the cause of her symptoms for unknown actual reason, but on reevaluation after treating her symptoms she is feeling much better and states she is in no more pain. Discussed outpatient follow-up, ways to treat recurrent pain, but otherwise I do not think she needs any prescriptions right now. She did have bacteriuria and some pyuria without any urinary symptoms so I am sending it for culture. Lab Data Attestation: I reviewed the patient's lab results. Labs: Laboratory Results - last 24 hr 10/24/22 10/24/22 10/24/22 08:25 08:25 10:50 WBC 2.6 L RBC 4.28 Hgb 13.3 Hct 38.0 MCV 88.8 MCH 31.1 MCHC 35.0 RDW Std Deviation 39.6 RDW Coeff of Adalberto 12.1 Plt Count 167 MPV 9.4 Immature Gran % (Auto) 0.400 Neut % (Auto) 48.6 Lymph % (Auto) 38.0 [place] % (Auto) 11.0 H Eos % (Auto) 1.6 Baso % (Auto) 0.4 Absolute Neuts (auto) 1.2 L Absolute Lymphs (auto) 0.97 Nucleated RBC % 0 Sodium 142 Potassium 3.0 L Chloride 106 Carbon Dioxide 29.0 Anion Gap 7 BUN 28 H Creatinine 1.09 H Estim Creat Clear Calc 34.05 Est GFR (MDRD) Af Amer 62 Est GFR (MDRD) Non-Af 51 L BUN/Creatinine Ratio 25.7 H Glucose 99 Calcium 9.2 Urine Color Yellow Urine Clarity Clear Urine pH 5.0 Ur Specific [place] 1.015 Urine Protein 15 H Urine Glucose (UA) Normal Urine Ketones 15 H Urine Occult Blood 25 H Urine Nitrite Negative Urine Bilirubin Negative Urine Urobilinogen Normal Ur Leukocyte Esterase 25 H Urine RBC 0-5 SEEN Urine WBC 10-25 SEEN Ur Squamous Epith Cells 0-5 SEEN Urine Bacteria 4+ Urine Mucus 0 SEEN Radiography Diagnostic Testing: Clinical Impression(s) from Imaging Studies Abdomen/Pelvis CT 10/24/22 08:53 IMPRESSION: 1. No free air or free fluid or bowel dilatation or evidence of obstruction is present. No diverticula or acute inflammation is seen on this study. There is moderate gaseous distention of the rectosigmoid colon Electronically Signed: Jose Batista MD at 10:37 EST Reading Location ID and State: [address] [place] [address] , Service support , Discharge Plan Triage Chief Complaint: Abd Pain ED Provider: Yordan Peña Dx/Rx/DC Orders Clinical Impression: Abdominal pain, acute, left lower quadrant Instructions: Abdominal Pain Prescriptions: No Action aspirin [Adult Aspirin Regimen] 81 mg tablet,delayed release (DR/EC) 81 mg PO QDAY thyroid supplement PO turmeric 400 mg capsule PO pyridoxine (vitamin B6) 50 mg tablet 50 mg PO DAILY amlodipine 10 mg tablet 10 mg PO DAILY Qty: 90 3RF hydrochlorothiazide 25 mg tablet 25 mg PO DAILY Qty: 90 3RF losartan 100 mg tablet 100 mg PO DAILY Qty: 90 3RF atorvastatin [Lipitor] 20 mg tablet 20 mg PO DAILY Qty: 90 3RF Primary Care Provider: Soraida Caro Referrals: Soraida Caro MD [Primary Care Provider] - 3-5 Days if not improving Disposition Disposition: Home, Self Care
[2022-10-24 09:12] LABS: Absolute Lymphocyte Count 0.97 X10^3/uL (0.83-4.51); Absolute Neutrophil Count 1.2 X10^3/uL (2.0-7.7); Basophil# 0.01 X10^3/uL; Basophil% 0.4 % (0-1); Eosinophil# 0.04 X10^3/uL; Eosinophils% 1.6 % (0-5); Hemoglobin 13.3 g/dL (12.0-15.0); Lymphocyte # 0.97 X10^3/ul (0.83-4.51); Mean Corpuscular Hgb 31.1 pg (27.0-32.0); Mean Corpuscular Volume 88.8 fL (81-99); Mean Platelet Vol. 9.4 fl (6.2-12.0); Monocyte# 0.28 X10^3/uL; NRBC Flagged by Analyzer 0 % (0-5); Neutrophil # 1.24 X10^3/uL (2.7-7.7); Neutrophil % 48.6 % (47-70); Platelet Count 167 K/mm3 (150-450); RBC Distribution Width CV 12.1 % (11.6-14.6); RBC Distribution Width SD 39.6 fl (35.1-43.9); Red Blood Count 4.28 M/mm3 (4.2-5.4); White Blood Count 2.6 K/mm3 (4.4-11.0)
[2022-10-24 09:23] LABS: Anion Gap 7 (5-15); BUN 28 mg/dL (7-18); BUN/Creat Ratio 25.7 RATIO (10-20); Calcium,Total 9.2 mg/dL (8.5-10.1); Chloride 106 mmol/L (98-107); Creatinine, Serum 1.09 mg/dL (0.55-1.02); EST Glomerular Filtration Rate 51 mL/min (>60); Est Glom Filt Rate - Afr Amer 62 mL/min (>60); Estimated Creatinine Clearance 34.05 ml/min; Glucose 99 mg/dL (74-106); Sodium Level 142 mmol/L (136-145)
[2022-10-24] MEDS: 0.9% Normal Saline 1,000 ML 125 ML IV (09:48)
[2022-10-24 11:02] LABS: Mucous, Urine 0 SEEN /hpf (<or=2+)
[2022-10-24 11:05] VITALS: BP 145/68; PULSE 87; RESP 18; O2SAT 97
[2022-10-24 11:06] LABS: Color, Urine Yellow (Yellow); Glucose, Dipstick Normal (Normal); Ketone-Dipstick 15 mg/dl (Negative); Leukocyte Esterase-Dipstick 25 /ul (Negative); Nitrite-Dipstick Negative (Negative); Occult Blood-Urine 25 /ul (Negative); Protein-Dipstick 15 mg/dl (Negative); Specific Gravity, Urine 1.015 (1.002-1.030); Urine Bilirubin Dipstick Negative (Negative); Urine Clarity Clear (Clear); Urine Urobilinogen Normal (Normal)
[2022-10-24 11:11] LABS: Bacteria 4+ /hpf (None Seen); Red Blood Cells-Urine 0-5 SEEN /hpf (0-5); Squamous Epithelial Cells - UA 0-5 SEEN /hpf (5-10); White Blood Cells 10-25 SEEN /hpf (0-5)
== END 2022-10-24 13:07 | disposition home or self-care (01) ==
PROVIDERS: Emergency Provider Emergency Medicine; PCP Family Medicine; Visit Provider Emergency Medicine
DX: R10.32 Left lower quadrant pain (principal); I42.8 Other cardiomyopathies; R82.71 Bacteriuria; I10 Essential (primary) hypertension; I25.10 Atherosclerotic heart disease of native coronary artery without angina pectoris; R82.81 Pyuria; Z79.82 Long term (current) use of aspirin; Z79.890 Hormone replacement therapy; Z79.899 Other long term (current) drug therapy
CPT/HCPCS: 74177; 80048; 81001; 85025; 96360; 96361; 99285; J7030; Q9967; A4216; J2405

== ENCOUNTER 2022-10-25 15:07 | Emergency (ER) | payer MEDICARE, OTHER, SELFPAY ==
[2022-10-25 15:08] VITALS: BP 146/87; PULSE 80; RESP 14; TEMP 36.6; O2SAT 99; BMI 20.1
--- NOTE | 2022-10-25 15:13 | ED.RN ---
daughter Clarissa aware that pt is in ED. Daughter requests placement.
--- NOTE | 2022-10-25 15:34 | CT_ITS ---
INDICATION: acute changed mental status EXAMINATION: CT BRAIN - CT Head or Brain W/O Contrast Injection TECHNIQUE: Multiple axial images were obtained of the head without intravenous contrast. A radiation dose optimization technique was used for this scan. IV Contrast dosage and agent: None. COMPARISON: FINDINGS: Mild calcific plaquing of the cavernous carotids BRAIN PARENCHYMA: No intra- or extra-axial hemorrhage. No evidence of acute infarct. No intracranial mass or mass effect. There is preservation of the underwood/white matter interface. Posterior fossa structures are unremarkable. CSF SPACES: Mild atrophy and periventricular white matter ischemic changes. Basal cisterns are patent. CALVARIUM, SKULL BASE, PARANASAL SINUSES AND MASTOID AIR CELLS: Mild mucosal thickening of the right maxillary ethmoid and sphenoid sinuses. No discrete lytic or blastic abnormalities. ORBITS: Both globes, extraocular muscles, optic nerves and retrobulbar fat appear unremarkable except for tiny scleral calcification in the left orbit.. ASPECTS Score for Acute Strokes: 10 CT/Brain/Head without Contrast IMPRESSION: Mild atrophy and periventricular white matter ischemic change. No acute bleed. If concern for acute infarct MRI recommended. Electronically Signed: Chuckie Gay MD at 16:45 EST Reading Location ID and State: [facility] / [place] , Service support ,
--- NOTE | 2022-10-25 15:34 | EKG12_ITS ---
Test Reason : MENTAL HEALTH Blood Pressure : / mmHG Vent. Rate : 073 BPM Atrial Rate : 073 BPM P-R Int : 156 ms QRS Dur : 146 ms QT Int : 438 ms P-R-T Axes : 062 -12 131 degrees QTc Int : 482 ms Poor data quality, interpretation may be adversely affected Normal sinus rhythm Possible Left atrial enlargement Left bundle branch block Abnormal ECG Confirmed by ES FERRARO, EDGAR ([id number]), marketing editor WIN HAYNES ([id number]) on 10/29/2022 10:34:24 AM Referred By: Confirmed By:JUNG SUGGS MD
--- NOTE | 2022-10-25 15:36 | EDS_ITS ---
HPI HPI - Psych History of Present Illness Chief Complaint: Mental Health Informant: patient Narrative Narrative: Patient was found wandering through the hospital. She stopped in office and told them that she was afraid she was about to deliver. She tells me that she is here in the hospital because either they are going to implant her eggs and her daughter or her daughters eggs into her. She states she had a hysterectomy but for some reason they never did it and she thinks it is because they knew in the future she would have to carry a baby for her daughter. I cannot get a lot more details from her. I did discuss the case with our home health care social worker who discussed the case directly with her son to get more information. Police have also been involved. Evidently she has had issues similar to this in the past but they are getting markedly worse. They are getting to the point where the family is concerned about her safety and caring for herself. She does live alone. Patient history including past medical history, meds surgeries including hysterectomy and family history were reviewed on the chart. She is not on any anticoagulation. She does state that she is on blood pressure medicine and takes a lot of vitamins. This is somewhat consistent with her med list but not perfectly so. Patient denies any specific symptoms such as fevers chills nausea vomiting chest pain. She has no rashes. No headaches. No numbness tingling weakness. No change in her physical condition. She denies being ill recently. She denies any change in medications. She denies any recent surgeries. She does recall being here yesterday. [facility] Medical History (Updated 10/25/22 @ 18:[address] 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 Essential (primary) hypertension Left bundle branch block Non-ischemic cardiomyopathy Squamous cell carcinoma in situ Home Medications aspirin 81 mg tablet,delayed release (Adult Aspirin Regimen) 81 mg PO DAILY HEART HEALTH 04/09/18 [History Last Taken 10/25/22] thyroid supplement 1 tab PO DAILY THYROID 04/09/18 [History Last Taken 10/25/22] pyridoxine (vitamin B6) 50 mg tablet 50 mg PO DAILY SUPPLEMENT 08/18/20 [History Last Taken 10/25/22] turmeric 400 mg capsule 400 mg PO DAILY SUPPLEMENT 08/18/20 [History Last Taken 10/25/22] amlodipine 10 mg tablet 10 mg PO DAILY BLOOD PRESSURE 10/25/22 [History Last Taken 10/25/22] atorvastatin 20 mg tablet (Lipitor) 20 mg PO DAILY CHOLESTEROL 10/25/22 [History Last Taken 10/25/22] hydrochlorothiazide 25 mg tablet 25 mg PO DAILY BLOOD PRESSURE 10/25/22 [History Last Taken 10/25/22] losartan 100 mg tablet 100 mg PO DAILY BLOOD PRESSURE 10/25/22 [History Last Taken 10/25/22] Allergy/AdvReac Type Severity Reaction Status Date / Time carvedilol Allergy hives Verified 10/25/22 15:08 Penicillins AdvReac Other Verified 10/25/22 15:08 Family History Mother Heart disease Father CAD (coronary artery disease) CABG Myocardial infarction Surgical History H/O total hysterectomy History of left heart catheterization (12/15/18) History of vocal cord polypectomy Social History Smoking Status: Never smoker EXAM Physical Exam Narrative Exam Narrative: Patient is awake she is alert. She is generally cooperative. She is nontoxic in appearance. She is reasonably well-groomed. I did discuss her case with nursing staff here who saw her yesterday. She looks a little bit less well- groomed than yesterday. I see no sign of trauma on her. No facial tenderness. No JVD. Lungs are clear bilaterally. Heart is regular. She has a rate of about 85. I hear no murmur. She has normal peripheral pulses. Her abdomen is thin soft nontender. No CVA tenderness. No pain with motion of extremities. No notable edema. No discoordination. Patient is awake alert. She knows where she is. She has a reasonable knowledge of her history. She recalls being here yesterday and some of the testing that was done. But she does have thoughts of carrying a baby for her daughter. Const Vital Signs: 10/25/22 15:08 Temperature 98 F Temperature Source Temporal Pulse Rate 80 Respiratory Rate 14 Blood Pressure 146/87 H Blood Pressure Mean 106 Pulse Ox 99 Oxygen Delivery Method Room Air MDM MDM MDM Narrative Medical decision making narrative: Blood work was done as part of medical clearance. Her white count does show some mild leukopenia but this is better than yesterday. This is nonspecific finding. Electrolytes show minimal decreased potassium at 3.1 but this should self correct with diet. Alcohol was essentially negative. Urine tox screen is pending. EKG as below. Further history was obtained looking at her chart. She has had prior stress test back in November 02, 2019 that showed no marked abnormalities. CAT scan of the head was done due to age to make sure there is no intracranial mass or other process causing her symptoms. CT of the head read by radiology as negative. I also did my independent interpretation and looked at all the images for the CT. I see no mass bleeding or shift. There is slight rotation. But no acute process to explain her symptoms. Tox is overall negative. Patient has been accepted to [facility] psychiatry. Lab Data Attestation: I reviewed the patient's lab results. Labs: Laboratory Results - last 24 hr 10/25/22 10/25/22 10/25/22 15:40 15:40 15:40 WBC 3.1 L RBC 4.06 L Hgb 12.3 Hct 36.2 L MCV 89.2 MCH 30.3 MCHC 34.0 RDW Std Deviation 39.3 RDW Coeff of Adalberto 12.2 Plt Count 171 MPV 8.9 Immature Gran % (Auto) 0.000 Neut % (Auto) 54.4 Lymph % (Auto) 33.0 [place] % (Auto) 10.7 H Eos % (Auto) 1.6 Baso % (Auto) 0.3 Absolute Neuts (auto) 1.7 L Absolute Lymphs (auto) 1.02 Nucleated RBC % 0 Sodium 144 Potassium 3.1 L Chloride 109 H Carbon Dioxide 30.0 Anion Gap 5 BUN 25 H Creatinine 1.01 Estim Creat Clear Calc 34.99 Est GFR (MDRD) Af Amer 68 Est GFR (MDRD) Non-Af 56 L BUN/Creatinine Ratio 24.8 H Glucose 91 Calcium 9.7 Urine Opiates Screen Urine Methadone Screen Ur Barbiturates Screen Ur Phencyclidine Scrn Ur Amphetamines Screen MDMA (Ecstasy) Screen U Benzodiazepines Scrn Urine Cocaine Screen U Cannabinoids Screen Ur Drug Screen Comment Ethyl Alcohol 5.0 10/25/22 16:15 WBC RBC Hgb Hct MCV MCH MCHC RDW Std Deviation RDW Coeff of Adalberto Plt Count MPV Immature Gran % (Auto) Neut % (Auto) Lymph % (Auto) [place] % (Auto) Eos % (Auto) Baso % (Auto) Absolute Neuts (auto) Absolute Lymphs (auto) Nucleated RBC % Sodium Potassium Chloride Carbon Dioxide Anion Gap BUN Creatinine Estim Creat Clear Calc Est GFR (MDRD) Af Amer Est GFR (MDRD) Non-Af BUN/Creatinine Ratio Glucose Calcium Urine Opiates Screen NEGATIVE Urine Methadone Screen NEGATIVE Ur Barbiturates Screen NEGATIVE Ur Phencyclidine Scrn NEGATIVE Ur Amphetamines Screen NEGATIVE MDMA (Ecstasy) Screen NEGATIVE U Benzodiazepines Scrn NEGATIVE Urine Cocaine Screen NEGATIVE U Cannabinoids Screen NEGATIVE Ur Drug Screen Comment Ethyl Alcohol Radiography Diagnostic Testing: Clinical Impression(s) from Imaging Studies Brain CT 10/25/22 15:34 IMPRESSION: Mild atrophy and periventricular white matter ischemic change. No acute bleed. If concern for acute infarct MRI recommended. Electronically Signed: Chuckie Gay MD at 16:45 EST Reading Location ID and State: [address] [place] [address] , Service support , EKG Initial EKG: Comments: EKG done as part of medical clearance. My independent interpretation the EKG shows sinus rhythm with overall rate of 73. There is s ome baseline variation and artifact. There is also a left bundle branch block. This is not new. There are ST changes related to this bundle branch block but no sign of acute ST elevation or depression consistent with infarct or ischemia. TX interval was normal. QRS duration and QTC are slightly long. Discharge Plan Triage Chief Complaint: Mental Health ED Provider: Thor Sargent Dx/Rx/DC Orders Clinical Impression: Psychosis, Hypokalemia Prescriptions: No Action aspirin [Adult Aspirin Regimen] 81 mg tablet,delayed release (DR/EC) 81 mg PO DAILY thyroid supplement 1 tab PO DAILY turmeric 400 mg capsule 400 mg PO DAILY pyridoxine (vitamin B6) 50 mg tablet 50 mg PO DAILY atorvastatin [Lipitor] 20 mg tablet 20 mg PO DAILY amlodipine 10 mg tablet 10 mg PO DAILY hydrochlorothiazide 25 mg tablet 25 mg PO DAILY losartan 100 mg tablet 100 mg PO DAILY Primary Care Provider: Soraida Caro Referrals: Soraida Caro MD [Primary Care Provider] - Disposition Disposition: Psychiatric Hospital or Unit
[2022-10-25 15:57] LABS: Absolute Lymphocyte Count 1.02 X10^3/uL (0.83-4.51); Absolute Neutrophil Count 1.7 X10^3/uL (2.0-7.7); Basophil# 0.01 X10^3/uL; Basophil% 0.3 % (0-1); Eosinophil# 0.05 X10^3/uL; Eosinophils% 1.6 % (0-5); Hematocrit 36.2 % (37-47); Hemoglobin 12.3 g/dL (12.0-15.0); Lymphocyte # 1.02 X10^3/ul (0.83-4.51); Mean Corpuscular Hgb 30.3 pg (27.0-32.0); Mean Corpuscular Volume 89.2 fL (81-99); Mean Platelet Vol. 8.9 fl (6.2-12.0); Monocyte# 0.33 X10^3/uL; Monocyte% 10.7 % (0-10); NRBC Flagged by Analyzer 0 % (0-5); Neutrophil # 1.68 X10^3/uL (2.7-7.7); Neutrophil % 54.4 % (47-70); Platelet Count 171 K/mm3 (150-450); RBC Distribution Width CV 12.2 % (11.6-14.6); RBC Distribution Width SD 39.3 fl (35.1-43.9); Red Blood Count 4.06 M/mm3 (4.2-5.4); White Blood Count 3.1 K/mm3 (4.4-11.0)
--- NOTE | 2022-10-25 16:24 | ED.RN ---
Pt brought to ED triage by [facility] staff. Pt had told her she was in labor and having a baby. Pt corrected staff and said, No, I'm having a test tube baby implanted in me today. Pt disheveled, anxious. Pt had been at ED yesterday verbalizing that she had delivered 2 babies into toilet and had them placed in fridge. Call placed to daughter Clarissa who stated that was pt's baseline mental status. Clarissa transported pt home. This RN called Clarissa again today, she states just tell her to go home. This RN expressed concerns with just sending pt home. Bessy states there's nothing I can do, she won't listen to me. Clarissa further states pt needs group home placement in assisted living but is unwilling to go.
[2022-10-25 16:35] LABS: Anion Gap 5 (5-15); BUN 25 mg/dL (7-18); BUN/Creat Ratio 24.8 RATIO (10-20); Calcium,Total 9.7 mg/dL (8.5-10.1); Chloride 109 mmol/L (98-107); Creatinine, Serum 1.01 mg/dL (0.55-1.02); EST Glomerular Filtration Rate 56 mL/min (>60); Est Glom Filt Rate - Afr Amer 68 mL/min (>60); Estimated Creatinine Clearance 34.99 ml/min; Glucose 91 mg/dL (74-106); Potassium 3.1 mmol/L (3.5-5.1); Sodium Level 144 mmol/L (136-145)
[2022-10-25 16:57] LABS: Amphetamine Urine VISTA NEGATIVE (<1000 ng/mL); Barbiturate Urine VISTA NEGATIVE (< 200 ng/mL); Benzodiazepine Urine VISTA NEGATIVE (< 200 ng/mL); Cocaine Urine VISTA NEGATIVE (< 300 ng/mL); Ecstacy Urine VISTA NEGATIVE (< 500 ng/mL); Methadone Urine VISTA NEGATIVE (< 300 ng/mL); PCP Urine VISTA NEGATIVE (< 25 ng/mL); THC Urine VISTA NEGATIVE (< 50 ng/mL); Vista UDS pH Range 4
--- NOTE | 2022-10-25 17:52 | CM.ED ---
Addendum entered by Analilia Schafer 10/25/22 19:20: ERNIE received admitting information from [facility] as follows: Dr. Johnson, geriatric unit, N2N [id number]. ERNIE faxed pink slip to hospital. MD and RN updated. corporation secretary coornidated transportation, reported ETA 1.5hrs. SW met with patient to update her about transferring to [facility] for further evaluations. Patient stated you guys think I am crazy?, SW explained it was to provide patient with further care that she isn't able to receive in the ED. Patient reported an understanding. SW informed patient she would update her son Sundeep. SW contacted patient's son, Sundeep ([phone]), to inform him of the patient's acceptance to [facility] and ETA. Patient's son inquired about the location but voiced an understanding of the transfer. Plan: [facility], geriatric unit MAGUE Huang Addendum entered by Analilia Schafer 10/25/22 18:05: ERNIE contacted patient's son, Sundeep, to update him of recommendations. Patient's son reported an understanding and requested to be notified when she is transfered. ERNIE sent referral via fax to [facility] after verifying bed availability. MAGUE Huang Original Note: Social Work Psychiatric Assessment Reason for Consult: mental health Informants: Patient, Mai. ERNIE also contacted patient?s son and daughter for more information RAUL Craig met with ERNIE and informed SW patient presented to [facility] stating she was going to have a baby. RN explained patient was at the hospital the day before for the same reason. ERNIE contacted patient?s son Sundeep Gonzalez due to patient?s daughter informing nursing staff he should be contacted as he is her neighbor and oldest child. ERNIE introduced herself and role as [facility] Insecticide Mixer and inquired about recent events as well as concerns. Patient?s son explained things have been ?off? lately and she has been more delusional recently. Patient?s son explained he was looking into home health care services so she had more support at home. Patient explained he takes her food but she doesn?t always eat what he brings. SW explained evaluation process and explained she would contact him after meeting with the doctor and patient to review possible plan of care. Chief Complaint: Patient states she is at the hospital to have a transplant so her daughter can have a baby. Patient explained she drove herself to the hospital. Martial Status: Patient reports she has been for 62 years and her is currently staying at a fpc. Patient also reported she has two husbands and her second , Ulises Hutchins, is who is providing the sperm for the baby she will be carrying. Patient?s son, Sundeep, stated her over a year ago. Identified gender/ sexual orientation: female, heterosexual Living situation: Patient states she lives alone, but her son Sundeep lives on a farm about a half mile away. Patient explained she walked to his house the other day just because. Supports/ Resources: Patient explained she has two very close friends, Tayler and Sherine. No connection to other resources reported, however, patient?s son states he was looking into home health options but services had not started. 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 Mental Health Treatment/ History: Patient states she has ?probably? had mental health treatment in the past but can not recall where or when. Patient denies psychiatric medication, denies any psychiatric hospitalization, and denied any previous diagnosis. Triggers/ stressors: Patient explained ?I am probably stressed now with everything happening at my home?. Patient further explained that there has been a ?peeping Louie? in her neighborhood and she has been having issues with other neighbors. Patient stated police have been patrolling her neighborhood more and she always keeps her doors locked. Coping Skills: Patient reports walking as her main coping skill. Abuse History: none reported Substance Abuse Hx: none reported Risk to Self/Others: ? Suicidal: denied ? Homicidal: denied ? Violence: denied Mental Status Exam: ? Orientation x3 : Patient identified that she was at [facility], it was and the president was Dylan. Patient then stated she will be meeting the president because she was able to write a letter to ?[employer]? and asked to meet the president. Patient explained they verified the local airport was big enough for his plane, but it was a secret that he was coming to meet her. ? Memory: impaired ? Appearance: ?Disheveled ? Mood/ affect: flat affect, neutral mood ? Communication Pattern: responds to questions but fixated on discussing getting to carry her daughter?s child. ? Thought Process: delusions ? General Intellectual Functioning: average Judgement: poor Insight: poor? ERNIE contacted patient?s daughter, Clarissa, and introduced herself and role as [facility] Insecticide Mixer. SW inquired about recent events as well as concerns. Patients daughter explained the patient has been declining mentally since she had cancer about three years ago. Patient?s daughter reports the patient has informed others that Sundeep by suicide and she in a car accident. Patient?s daughter reports patient would benefit from more intensive care and wants Sundeep to be contacted first as he lives closer to her and is the oldest child. ERNIE consulted with ERNIE Basurto regarding patient?s symptoms and concerns reported by family. Sherine recommended discussing geriatric psychiatric placement with . ERNIE consulted with MD Sargent about concerns reported by patient?s children and concerns gathered during evaluation. also voiced concerns regarding patient?s safety as this was the second day in a row she was at the hospital for the same delusion. ?MD in agreement that patient would benefit from further evaluation for crisis stabilization and medication management. MD voiced patient will be pink slipped. Assessment: Patient presented to the ED in another location of the hospital and was assisted by [facility] staff to the ED. Patient reports she was here due to cramps and was going to be implanted with her daughter?s baby. Patient drove herself to the hospital today. Patient also reported she will be meeting the President, here current of 62 years is at a fpc (although he past away over a year ago) and she has a second . Patient?s son reports a change in her recent behavior and patient?s daughter also reports patient?s symptoms have been worsening over the years. Plan: Psychiatric Hospitalization for crisis stabilization and medication management Analilia AVILES, MAGUE
[2022-10-25 19:12] LABS: Color, Urine Yellow (Yellow); Glucose, Dipstick Normal (Normal); Ketone-Dipstick 5 mg/dl (Negative); Leukocyte Esterase-Dipstick 100 /ul (Negative); Nitrite-Dipstick Negative (Negative); Occult Blood-Urine 25 /ul (Negative); Protein-Dipstick 30 mg/dl (Negative); Urine Bilirubin Dipstick Negative (Negative); Urine Clarity Sl. Cloudy (Clear); Urine Urobilinogen Normal (Normal)
[2022-10-25 19:45] LABS: Bacteria 3+ /hpf (None Seen); Mucous, Urine 3+ /hpf (<or=2+); Red Blood Cells-Urine 0-5 SEEN /hpf (0-5); Squamous Epithelial Cells - UA 5-10 SEEN /hpf (5-10); White Blood Cells 0-5 SEEN /hpf (0-5)
[2022-10-25 21:00] VITALS: BP 137/81; PULSE 79; RESP 16; O2SAT 98
--- NOTE | 2022-10-25 22:29 | ED.RN ---
SPOKE TO MARIA C VIEIRA, UPDATED ON PT GOING TO [facility]. PER MARIA C CAR KEYS AND HOUSE KEYS KEPT AT [facility] SECURITY OFFICE FOR ISHA TO WEB DEVELOPER.
== END 2022-10-25 22:31 ==
PROVIDERS: Emergency Provider Emergency Medicine; PCP Family Medicine; Visit Provider Emergency Medicine
DX: F29 Unspecified psychosis not due to a substance or known physiological condition (principal); I42.8 Other cardiomyopathies; I25.10 Atherosclerotic heart disease of native coronary artery without angina pectoris; E87.6 Hypokalemia; I10 Essential (primary) hypertension; D72.819 Decreased white blood cell count, unspecified; Z79.82 Long term (current) use of aspirin; Z79.899 Other long term (current) drug therapy
CPT/HCPCS: 36415; 70450; 80048; 80307; 81001; 82077; 85025; 87811; 93005; 99285